=== PATIENT | female | born 1995 | race Caucasian/White ===

== ENCOUNTER → 2021-05-07 08:44 | Outpatient (CLI) | payer OTHER, SELFPAY ==
--- NOTE | ~2021-05-07 | CT_ITS ---
EXAMINATION: CT IAC/mastoids BI wo con EXAM DATE: 05/07/2021 09:05 INDICATION: Enlarged lymph nodes behind left ear. TECHNIQUE: Spiral CT of the internal auditory canals was performed without contrast. Axial and mary nal images were reviewed. The dose-length product (DLP) for this examination was 233.95 mGy-cm. The exposure was tailored according to patient size, and iterative reconstruction (ASIR) was used as add itional dose reduction technique. There is no prior study for comparison. FINDINGS: No periauricular lymph nodes identified. RIGHT side: The middle ear is well aerated. The mastoid air cells are well aerated. The seventh aircraft mechanic nial nerve has a normal course. The scutum is intact. The ossicles are normal in appearance. Small portions of the tegmen tympani have wall that is imperceptible. The cochlea and semicircular canals are normal in appearance. Internal auditory canal is normal in appearance and symmetric compared to contralateral side. LEFT side: The middle ear is well aerated. The mastoid air cells are well aerated. The seventh cran ial nerve has a normal course. The scutum is intact. The ossicles are normal in appearance. Small portions of the tegmen tympani have wall that is imperceptible. The cochlea and semicircular canals are normal in appearance. Internal auditory canal is normal in appearance and symmetric compared to contralateral side. IMPRESSION: Unremarkable CT IAC exam. Reviewed, dictated and finalized at location B. IMPRESSION: Unremarkable CT IAC exam.
== END ==
PROVIDERS: Visit Provider Otolaryngology
DX: R59.9 Enlarged lymph nodes, unspecified (principal)
CPT/HCPCS: 70480